=== PATIENT | male | born 1985 | race Caucasian/White ===

== ENCOUNTER 2020-07-28 21:02 | Emergency (ER) | payer BC, SELFPAY ==
[2020-07-28 21:08] VITALS: BP 152/85; BP 177/90; PULSE 131; PULSE 133; RESP 14; TEMP 37.3; O2SAT 100; O2SAT 99; BMI 29.5
--- NOTE | 2020-07-28 21:37 | ED.OVERDOSE ---
HPI - Overdose General Chief Complaint: Overdose Stated Complaint: OVERDOSE Time Seen by Provider: 07/28/20 21:33 Mode of arrival: EMS Limitations: no limitations History of Present Illness HPI Narrative: Patient comes emergency room after an overdose. Patient states it was intentional, states that he has been dealing with severe right-sided hip pain since April of 2020. Patient recently had an MRI, states that he was told that he has herniated discs. Patient states he has experimented with drugs in the past, however this time he used it as self-medication for hip pain. Patient's had Narcan at home, who gave him a dose. To the emergency room, patient is alert and oriented, calm and cooperative, admits to using 2 bags of heroin MD complaint: accidental overdose Related Data Allergies Allergy/AdvReac Type Severity Reaction Status Date / Time No Known Allergies Allergy Verified 07/28/20 21:11 [No Known Allergies*] Review of Systems Review of Systems: Constitutional : No Weight loss, No Fever, No Chills, No Night Sweats, No Fatigue, No Malaise ENT/Mouth : No Hearing loss, No Ear Pain, No Nasal Congestion, No Sinus Pain, No Hoarseness, No sore throat, No Rhinorrhea, No Swallowing Difficulty Eyes: No Eye Pain, No Swelling, No Redness, No Foreign Body, No Discharge, No Vision Changes Cardiovascular : No Chest Pain, No SOB, No Dyspnea on Exertion, No Orthopnea, No Edema, No Palpitations Respiratory : No Cough, No Sputum, No Wheezing, No Smoke Exposure, No Dyspnea Gastrointestinal : No Nausea, No Vomiting, No Diarrhea, No Constipation, No abdominal Pain, No Hematochezia, No Melena Genitourinary : no irregular bleeding, No Dysuria, No Urinary Frequency, No Hematuria, No Urinary Incontinence, No Urgency, No Flank Pain, No Urinary Flow Changes, No Hesitancy Musculoskeletal : Complaining of chronic right hip pain, No Myalgias, No Joint Swelling Skin : No Skin Lesions, No rash Neuro : No Weakness, No Numbness, No Paresthesias, No Loss of Consciousness, No Dizziness, No Headache Psych : No Anxiety/Panic, No Depression, No SI/HI/AH/VH, No Social Issues, Heme/Lymph: No Bruising, No Bleeding,No Lymphadenopathy Endocrine : No Polyuria, No Polydipsia, No Temperature Intolerance PMFSH Past Medical History Medical History Chronic back pain Opioid abuse Social History Social History Advance Directives: No Advance Directives Information Provided: Yes Physical Exam Vital Signs: Vital Signs: Last Vital Signs Temp 99.2 F 07/28/20 21:39 Pulse 121 H 07/28/20 21:39 Resp 18 07/28/20 21:39 BP 134/85 07/28/20 21:39 Pulse Ox 97 07/28/20 21:39 Body Mass Index 29.5 Appearance: Alert. Oriented X3. No acute distress. Eyes: Pupils equal, round and reactive to light. ENT: Pharynx normal. Neck: Normal inspection. Neck supple. No lymph nodes noted. No crepitus CVS: Normal heart rate and rhythm. Pulses normal. Normal S1 and S2 Respiratory: No respiratory distress. Breath sounds normal. No Wheezing. No rales Abdomen: Soft and nontender. No rigidity. No distention. good BS x4 Skin: Skin warm and dry. Normal skin color. Normal skin turgor. Extremities: No lower extremity edema. No lower extremity edema. No Lacerations. No Rash Neuro: Oriented X 3. No motor deficit. No sensory deficit. Moving all extermities. No slurred speech. Course Course Course Narrative: Patient remains awake, alert, oxygen saturation 99% on room air. Per patient, his is picking him up. Patient was provided with home Narcan Discharge Plan Discharge Clinical Impression: Drug overdose Qualifiers: Encounter type: initial encounter Injury intent: accidental or unintentional Qualified Code(s): T50.901A - Poisoning by unspecified drugs, medicaments and biological substances, accidental (unintentional), initial encounter Patient Disposition: Home, Self-Care Instructions: Adult Overdose (ED) Additional Instructions: Please follow-up with your primary care physician tomorrow. If you have any worsening or new symptoms, please return to the emergency room or call 911
[2020-07-28 21:39] VITALS: BP 134/85; PULSE 121; RESP 18; TEMP 37.3; O2SAT 97
--- NOTE | 2020-07-28 22:05 | PC.NURSE ---
PT AWAKE AND ALERT, SEATED UPRIGHT IN BED AND IN NO DISTRESS. PT ON PHONE SPEAKING TO FAMILY/FRIEND?
== END 2020-07-28 23:28 | disposition home or self-care (01) ==
PROVIDERS: Emergency Provider Emergency Medicine
DX: T40.1X2A Poisoning by heroin, intentional self-harm, initial encounter (principal); Y92.009 Unspecified place in unspecified non-institutional (private) residence as the place of occurrence of the external cause; M51.17 Intervertebral disc disorders with radiculopathy, lumbosacral region; F11.10 Opioid abuse, uncomplicated; Z71.51 Drug abuse counseling and surveillance of drug abuser
CPT/HCPCS: 99285

== ENCOUNTER 2022-08-09 18:51 | Emergency (ER) | payer BC, SELFPAY ==
--- NOTE | ~2022-08-09 | XR_ITS ---
EXAMINATION: XR CHEST CLINICAL INFORMATION: Chest pain COMPARISON: None available. TECHNIQUE: 2 views of the chest were obtained. FINDINGS: No significant abnormality is noted involving the heart, lungs, mediastinum, bony thorax or soft tissues. XR/XR chest 2V IMPRESSION: Unremarkable examination.
[2022-08-09 18:54] VITALS: BP 155/109; PULSE 86; RESP 18; TEMP 36.7; O2SAT 100; BMI 31.0
--- NOTE | 2022-08-09 18:56 | ECG_ITS ---
Test Reason : chest pain Blood Pressure : / mmHG Vent. Rate : 080 BPM Atrial Rate : 080 BPM P-R Int : 128 ms QRS Dur : 092 ms QT Int : 368 ms P-R-T Axes : 029 027 028 degrees QTc Int : 424 ms Normal sinus rhythm Normal ECG No previous ECGs available Referred By: Irma Marroquin Electronically Signed By:Denny Pearl
--- NOTE | 2022-08-09 18:57 | ED_ITS ---
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 No increase in discomfort with food or exertion no shortness of b reath and diaphoresis no palpitation or syncope episode <Alfonso Corona MD - Last Filed: 08/09/22 22:13> Related Data Allergies/Adverse Reactions: Allergies Allergy/AdvReac Type Severity Reaction Status Date / Time No Known Allergies Allergy Verified 07/28/20 21:11 [No Known Allergies*] <DANIEL Gonzalez - Last Filed: 08/09/22 18:58> Review of Systems Review of Systems: Yes all other systems are reviewed and are negative <Alfonso Corona MD - Last Filed: 08/09/22 22:13> [facility] Past Medical History Medical History: Medical History Chronic back pain Opioid abuse <DANIEL Gonzalez - Last Filed: 08/09/22 18:58> Social History Social History: Social History Advance Directives: No Advance Directives Information Provided: No <DANIEL Gonzalez - Last Filed: 08/09/22 18:58> Physical Exam Vital Signs: Vital Signs: Last Vital Signs Temp 98.1 F 08/09/22 18:54 Pulse 86 08/09/22 18:54 Resp 18 08/09/22 18:54 BP 155/109 H 08/09/22 18:54 Pulse Ox 100 08/09/22 18:54 O2 Del Method Room Air 08/09/22 18:54 BMI result Body Mass Index 31.0 <DANIEL Gonzalez - Last Filed: 08/09/22 18:58> Vital Signs: Last Vital Signs Temp 98.1 F 08/09/22 18:54 Pulse 86 08/09/22 18:54 Resp 18 08/09/22 18:54 BP 155/109 H 08/09/22 18:54 Pulse Ox 100 08/09/22 18:54 O2 Del Method Room Air 08/09/22 18:54 BMI result Body Mass Index 31.0 <Alfonso Corona MD - Last Filed: 08/09/22 22:13> Appearance: Alert. Oriented X3. No acute distress. Eyes: PERRLA, No Nystagmus ENT: Pharynx normal. Oral Mucosa moist Neck: Normal inspection. Neck supple. CVS: Normal heart rate and rhythm. Pulses normal. Respiratory: No respiratory distress. Equal air entry bilateral, no wheezing/r ales/rhonchi Abdomen: Soft and nontender. Bowel sounds are present, no mass palpable, no CVA tenderness Skin: Skin warm and dry. Normal skin color. Normal skin turgor. Extremities: No lower extremity edema. No calf tenderness Neuro: Oriented X 3. No motor deficit. No sensory deficit.No cerebellar signs , cranial nerves II-XII intact <Alfonso Corona MD - Last Filed: 08/09/22 22:13> Course Course Course Narrative: RME - 37 yo male, former smoker who presents to the ER for evaluation of chest tightness for the last couple of days, currently 2/10 but was up to a 6/10 earlier today when walking. Pain does not radiate, located right in the middle of the chest. No associated SOB, diaphoresis or nausea. On the way here he developed left arm feeling funny described as some numbness. Plan: EKG, CXR, labs <DANIEL Gonzalez - Last Filed: 04/03/23 18:58> Medical Decision Making Medical Decision Making [facility] Narrative: Patient atypical chest pain high sensitive troponin negative EKG normal heart score of 0 discharge patient home advised to follow with PCP <Alfonso Corona MD - Last Filed: 08/09/22 22:13> Differential Diagnosis ACS/costochondritis /esophagitis <Alfonso Corona MD - Last Filed: 08/09/22 22:13> Lab Data [facility] Lab Attestation statement: I reviewed the patient's lab results. <Alfonso Corona MD - Last Filed: 08/09/22 22:13> Result Diagrams: 08/09/22 19:08 08/09/22 19:08 <DANIEL Gonzalez - Last Filed: 08/09/22 18:58> Labs: Lab Results 08/09/22 08/09/22 08/09/22 Range/Units 19:08 19:08 19:08 WBC 9.9 (4.8-10.8) X10*3/uL RBC 4.72 (4.60-5.80) X10*6/uL Hgb 14.1 (14.0-18.0) g/dl Hct 41.6 L (42.0-52.0) % MCV 88.1 (80.0-98.0) fL MCH 29.9 (27.0-33.0) pg MCHC 33.9 (31.0-36.0) g/dl RDW 11.9 (11.0-16.0) % Plt Count 317 (160-400) X10*3/uL MPV 9.2 L (9.4-12.4) fL Immature Gran % (Auto) 0.2 (0.0-0.4) % Neut % (Auto) 64.4 (45-73) % Lymph % (Auto) 28.3 (20-40) % [place] % (Auto) 5.6 (2-11) % Eos % (Auto) 1.2 (0-4) % Baso % (Auto) 0.3 (0-2) % Lymph # (Auto) 2.8 (1.2-4.9) X10*3/uL [place] # (Auto) 0.6 (0.1-1.2) X10*3/uL Eos # (Auto) 0.1 (0.0-0.4) X10*3/uL Baso # (Auto) 0.0 (0.0-0.2) X10*3/uL Abs Immat Gran (auto) 0.02 (0.00-0.03) X10*3/uL Absolute Neuts (auto) 6.4 (2.0-8.3) x10*3/uL Absolute Nucleated RBC 0.000 (0.0-0.012) X10*3/uL Nucleated RBC % (auto) 0.0 (0.0-0.2) /100WBC Sodium 139 (135-145) mmol/L Potassium 3.8 (3.3-5.1) mmol/L Chloride 102 (96-108) mmol/L Carbon Dioxide 29 (22-29) mmol/L Anion Gap 12 (12-20) BUN 11 (9-16) mg/dL Creatinine 0.87 (0.5-1.4) mg/dL Estim Creat Clear Calc 133.6 Estimated GFR > 60 Random Glucose 96 (60-115) mg/dL Calcium 9.3 (8.4-10.2) mg/dL Magnesium 1.9 (1.6-2.6) mg/dL Total Bilirubin 0.7 (0.0-1.0) mg/dL Direct Bilirubin 0.2 (0.0-0.5) mg/dL AST 31 (5-37) U/L ALT 28 (0-40) U/L Alkaline Phosphatase 56 (39-117) U/L Troponin I High Sens < 3.5 (<3.5-35.0) ng/L Total Protein 7.0 (6.5-8.0) g/dL Albumin 4.5 (3.5-5.0) g/dL <DANIEL Gonzalez - Last Filed: 08/09/22 18:58> Lab Results 08/09/22 08/09/22 08/09/22 Range/Units 19:08 19:08 19:08 WBC 9.9 (4.8-10.8) X10*3/uL RBC 4.72 (4.60-5.80) X10*6/uL Hgb 14.1 (14.0-18.0) g/dl Hct 41.6 L (42.0-52.0) % MCV 88.1 (80.0-98.0) fL MCH 29.9 (27.0-33.0) pg MCHC 33.9 (31.0-36.0) g/dl RDW 11.9 (11.0-16.0) % Plt Count 317 (160-400) X10*3/uL MPV 9.2 L (9.4-12.4) fL Immature Gran % (Auto) 0.2 (0.0-0.4) % Neut % (Auto) 64.4 (45-73) % Lymph % (Auto) 28.3 (20-40) % [place] % (Auto) 5.6 (2-11) % Eos % (Auto) 1.2 (0-4) % Baso % (Auto) 0.3 (0-2) % Lymph # (Auto) 2.8 (1.2-4.9) X10*3/uL [place] # (Auto) 0.6 (0.1-1.2) X10*3/uL Eos # (Auto) 0.1 (0.0-0.4) X10*3/uL Baso # (Auto) 0.0 (0.0-0.2) X10*3/uL Abs Immat Gran (auto) 0.02 (0.00-0.03) X10*3/uL Absolute Neuts (auto) 6.4 (2.0-8.3) x10*3/uL Absolute Nucleated RBC 0.000 (0.0-0.012) X10*3/uL Nucleated RBC % (auto) 0.0 (0.0-0.2) /100WBC Sodium 139 (135-145) mmol/L Potassium 3.8 (3.3-5.1) mmol/L Chloride 102 (96-108) mmol/L Carbon Dioxide 29 (22-29) mmol/L Anion Gap 12 (12-20) BUN 11 (9-16) mg/dL Creatinine 0.87 (0.5-1.4) mg/dL Estim Creat Clear Calc 133.6 Estimated GFR > 60 Random Glucose 96 (60-115) mg/dL Calcium 9.3 (8.4-10.2) mg/dL Magnesium 1.9 (1.6-2.6) mg/dL Total Bilirubin 0.7 (0.0-1.0) mg/dL Direct Bilirubin 0.2 (0.0-0.5) mg/dL AST 31 (5-37) U/L ALT 28 (0-40) U/L Alkaline Phosphatase 56 (39-117) U/L Troponin I High Sens < 3.5 (<3.5-35.0) ng/L Total Protein 7.0 (6.5-8.0) g/dL Albumin 4.5 (3.5-5.0) g/dL <Alfonso Corona MD - Last Filed: 08/09/22 22:13> Independent Interpretation I performed an independent interpretation of an: EKG <Alfonso Corona MD - Last Filed: 08/09/22 22:13> Interpretation: Normal sinus rhythm heart rate 80 beats per minute normal intervals normal axis no acute ST-T changes no acute ischemia <Alfonso Corona MD - Last Filed: 08/09/22 22:13> Discharge Plan Discharge Clinical Impression: Chest pain <DANIEL Gonzalez - Last Filed: 08/09/22 18:58> Patient Disposition: Home, Self-Care <DANIEL Gonzalez - Last Filed: 08/09/22 18:58> Instructions: Chest Pain (ED) <DANIEL Gonzalez - Last Filed: 08/09/22 18:58> Additional Instructions: Follow-up with PCP for further evaluation , chest pain is unlikely cardiac at this time there is no evidence of any heart damage Report to ER if worsening of the chest or change in character of chest pain <DANIEL Gonzalez - Last Filed: 08/09/22 18:58>
[2022-08-09 19:14] LABS: MANUAL DIFF FLAG NO
[2022-08-09 19:16] LABS: Basophils Percent Auto 0.3 % (0-2); Eosinophils Absolute Auto 0.1 X10*3/uL (0.0-0.4); Eosinophils Percent Auto 1.2 % (0-4); Hematocrit 41.6 % (42.0-52.0); Hemoglobin 14.1 g/dl (14.0-18.0); Imm Gran Abs Auto 0.02 X10*3/uL (0.00-0.03); Imm Gran Pct Auto 0.2 % (0.0-0.4); Lymphocytes Absolute Auto 2.8 X10*3/uL (1.2-4.9); Lymphocytes Percent Auto 28.3 % (20-40); Mean Corpuscular HGB Conc 33.9 g/dl (31.0-36.0); Mean Corpuscular Hemoglobin 29.9 pg (27.0-33.0); Mean Corpuscular Volume 88.1 fL (80.0-98.0); Mean Platelet Volume 9.2 fL (9.4-12.4); Monocytes Absolute Auto 0.6 X10*3/uL (0.1-1.2); Monocytes Percent Auto 5.6 % (2-11); Neutrophils Absolute Auto 6.4 x10*3/uL (2.0-8.3); Neutrophils Percent Auto 64.4 % (45-73); Platelet Count 317 X10*3/uL (160-400); Red Blood Count 4.72 X10*6/uL (4.60-5.80); Red Cell Distribution Width 11.9 % (11.0-16.0); White Blood Count 9.9 X10*3/uL (4.8-10.8)
[2022-08-09 19:38] LABS: Alanine Aminotransferase 28 U/L (0-40); Albumin Level 4.5 g/dL (3.5-5.0); Alkaline Phosphatase 56 U/L (39-117); Anion Gap 12 (12-20); Aspartate Amino Transferase 31 U/L (5-37); Bilirubin Direct 0.2 mg/dL (0.0-0.5); Bilirubin Total 0.7 mg/dL (0.0-1.0); Blood Urea Nitrogen 11 mg/dL (9-16); Calcium 9.3 mg/dL (8.4-10.2); Carbon Dioxide 29 mmol/L (22-29); Chloride 102 mmol/L (96-108); Creatinine Clr Calc Pharmacy 133.6; Estimated Glomerular Filt Rate > 60; Glucose Random 96 mg/dL (60-115); Magnesium 1.9 mg/dL (1.6-2.6); Potassium 3.8 mmol/L (3.3-5.1); Sodium 139 mmol/L (135-145)
[2022-08-09 19:45] LABS: Troponin-I High Sensitivity < 3.5 ng/L (<3.5-35.0)
== END 2022-08-09 22:33 | disposition home or self-care (01) ==
PROVIDERS: Physician Assistant; Emergency Provider Internal Medicine
DX: R07.89 Other chest pain (principal); Z79.899 Other long term (current) drug therapy
CPT/HCPCS: 36415; 71046; 80048; 80076; 83735; 84484; 85025; 93005; 99283

== ENCOUNTER 2022-12-30 09:23 | Outpatient (AMB) | payer BC, SELFPAY ==
--- NOTE | 2022-12-30 10:27 | MHC.OFFWIV ---
Intake Vital Signs 12/30/22 10:37 Weight 101.605 kg BP 128/72 Blood Pressure Location Lt brachial Position Sitting Pulse 112 H Pulse Source Pulse Oximeter Temp 98.1 F Temp Source Temporal Artery Scan Pulse Oximetry (%) 96 Oxygen Delivery Method Room Air Intake Visit Reasons: EP, Bug Bite on upper back [phone] Intake Note: Pt is here c/o possible bug bite or rash on his upper back. Patient Tobacco Use Status: Never used Tobacco Allergies No Known Allergies [No Known Allergies*] Allergy (Verified 12/30/22 10:28) Do you need a note to return to daycare/school/sports/work: No HPI HPI Comments History of Present Illness Details 1104 37-year-old male history of opiate abuse presenting with rash to back time 6 days, tells me it is itchy and slightly painful, not improving despite [id number] topical creams. Denies fevers, chills, chest pain, shortness of breath, nausea, vomiting, headache, vision changes, dizziness physical exam significant for vesicles on an erythematous base in a dermatomal distribution overlying T3/T4 region. Overlying erythema and warmth. Concerns for shingles. Unlikely necrotizing infection, TCN, SJS. There is overlying erythema and warmth concerning for cellulitis. Plan Valtrex, overlying cellulitis is present will treat with doxycycline for MRSA coverage in case present. Educated patient on diagnosis and treatment plan, answered all question, patient verbalizes understanding. At this time patient will be discharged home, advised to return with new or worsening symptoms. Educated on worrisome signs and symptoms and when to return. At this time I feel comfortable discharge home. [facility] Medical History Chronic back pain Opioid abuse Social History Patient Tobacco Use Status: Never used Tobacco Review of Systems Const Details: Constitutional : No Fever, No Chills, Cardiovascular : No Chest Pain, No SOB Respiratory : No Dyspnea Gastrointestinal : No abdominal pain Musculoskeletal : No Joint Swelling Skin : + rash, No skin laceration Neuro : No Weakness, No Numbness Psych : No SI/HI All systems reviewed & are unremarkable except as noted in HPI and below Physical Exam Vital Signs: Last Vital Signs Temp 98.1 F 12/30/22 10:37 Pulse 112 H 12/30/22 10:37 BP 128/72 12/30/22 10:37 Pulse Ox 96 12/30/22 10:37 Oxygen Delivery Method Room Air 12/30/22 10:37 vss Appearance: Alert.? Oriented X3.? No acute distress.? Head: Normocephalic, atraumatic, no step-offs or deformities Eyes: Pupils equal, round and reactive to light.? CVS: Normal heart rate and rhythm.? Pulses normal.? Respiratory: No respiratory distress.? Breath sounds normal.? Abdomen: Soft and nontender.? Skin: Skin warm and dry.? Normal skin color.? Normal skin turgor.? Extremities: No lower extremity edema.? No calf ttp. 5/5 strength to bilateral upper and lower extremities Back: No midline tenderness, no C-spine tenderness, full range of motion, no CVA tenderness bilaterally + vesicles on an erythematous base in a dermatomal distribution overlying T3/T4 region (not crossing midline). Overlying erythema and warmth. Neuro: Oriented X 3.? No motor deficit.? No sensory deficit. CN 2-12 intact Assessment & Plan Assessment & Plan (1) Shingles: Code(s): B02.9 - Zoster without complications Plan Take your medications as prescribed. If you were prescribed antibiotics today, it is important that you take your medication to their entirety, do not skip any doses, do not finish them early. Follow-up with your primary care provider this week. Return to the emergency department with new or worsening symptoms. Such as fevers, chills, chest pain, shortness of breath, nausea, vomiting, dizziness, headache, vision changes, lethargy In case of emergency call 911 Medications: New valacyclovir (Valtrex) 1,000 mg PO TID 7 days 21 tabs 0RF prednisone 40 mg (2 x 20 mg) PO DAILY 5 days 10 tabs 0RF doxycycline hyclate 100 mg PO BID 7 days 14 caps 0RF Coding Level of Care Code Est Pt Level 3 (56175) Diagnoses Shingles B02.9
[2022-12-30 10:37] VITALS: BP 128/72; PULSE 112; TEMP 36.7; O2SAT 96
== END 2022-12-30 11:18 | disposition home or self-care (01) ==
PROVIDERS: Visit Provider Physician Assistant
DX: B02.9 Zoster without complications (principal)
CPT/HCPCS: 99213

== ENCOUNTER 2025-02-28 09:49 | Outpatient (AMB) | payer BC, SELFPAY ==
--- NOTE | 2025-02-28 10:01 | A.OFFPC_ITS ---
Vital Signs 02/28/25 10:08 Height 5 ft 8.7 in Weight 199 lb BMI 29.6 BP 145/90 H Blood Pressure Location Rt brachial Position Sitting Pulse 79 Pulse Source Pulse Oximeter Temp 97.8 F Temp Source Temporal Artery Scan Pulse Oximetry (%) 100 Oxygen Delivery Method Room Air Intake Visit Reasons: Establish Care Accompanied by: Self / Same As Patient Allergies No Known Allergies (No Known Allergies*) Allergy (Verified 02/28/25 10:29) Medication List - Last Reconciled 02/28/25 by Emely Nava PA-C cyclobenzaprine 5 - 10 mg PO BID PRN naproxen 500 mg PO DAILY PRN Tobacco use date assessed: 02/28/25 Dental Screening Dental Screen Date: 02/28/25 Did you have a dental visit in the last 12 months?: Yes Was dental information given to patient?: Patient has dentist HPI Establish Care HPI Details The patient is a 40-year-old male presenting for an annual physical examination and management of chronic muscle spasms. The patient reports a history of shingles, for which he was prescribed Valtrex and prednisone. He is not currently on any medication for shingles. The patient has been experiencing muscle spasms for nearly 15 years, which began after a tick bite. He has undergone extensive testing, including blood work and imaging, but no definitive diagnosis has been made. The spasms are migratory, affecting areas such as the jaw, knee, SI joint, spine, shoulder, and hip. He has received various treatments, including injections and child care sitter, with minimal relief. The patient has also tried muscle relaxants, which provide limited relief and sometimes cause anxiety. The patient has a history of bulging and herniated discs, which have improved over time. 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 He has a family history of spine issues and arthritis, and he has been diagnosed with arthritis himself. The patient has also experienced issues with hypertension, which was previously managed with medication but improved with weight loss and increased physical activity. The patient reports a thyroid disorder, with previous tests indicating slight abnormalities, though an ultrasound was normal. He has not been assessed for autoimmune disorders or rheumatoid arthritis. Social History - Employment: Works as a rural mail carrier, involving significant physical activity. - Family status: Has two children and co aches daughter's softball team. - Substance use: History of self-medicat ion with pain medication, currently sober. - Exercise: Walks 12-13 miles daily due to job. [facility] Medical History (Updated 02/28/25 @ 11:56 by Emely Nava PA-C) Encounter for preventive care Thyroid disorder Hypertension Muscle spasm Dystonia Annual physical exam Multiple joint pain Opioid abuse Chronic back pain Family History Mother Degenerative arthritis of spine Father HTN (hypertension) Social History Housing: House Patient Tobacco Use Status: Former Tobacco user service: No Current occupational status: employed Cognitive needs: No Hearing needs: No Vision needs: No Questionnaire PHQ-9 Over the last 2 weeks, how often have you been bothered by any of the following problems? 1. Little interest or pleasure in doing things: not at all 2. Feeling down, depressed, or hopeless: not at all 3. Trouble falling or staying asleep, or sleeping too much: several days 4. Feeling tired or having little energy: not at all 5. Poor appetite or overeating: not at all 6. Feeling bad about yourself - or that you are a failure or have let yourself or your family down: not at all 7. Trouble concentrating on things, such as reading the newspaper or watching television: not at all 8. Moving or speaking so slowly that other people could have noticed. Or the opposite - being so fidgety or restless that you have been moving around a lot more than usual: not at all 9. Thoughts that you would be better off or of hurting yourself in some way : not at all Total score: 1 Depression Screening Interpretation: Negative Depression Screening Done: Yes 91108 - PHQ-9 Billing: Yes Source: Developed by Drs. Luis Cota, Dulce Maria Hall, Joshua Garay and colleagues, with an educational jose from [employer]. Thrive Questionnaire Date Thrive assessed: 02/28/25 I am a: Patient What is your living situation today?: I have a steady place to live Within the past 12 months, did the food you bought not last and you didn't have the money to get more?: Never true Within the past 12 months, did you worry whether your food would run out before you got money to buy more?: Never true Do you have trouble paying for medicines?: No Do you have trouble getting transportation to medical appointments?: No Do you have trouble paying your heating and electricity bill?: No Do you have trouble taking care of your child, family member or friend?: No Do you have trouble with day-to-day activities such as bathing, preparing meals, shopping, managing finances, etc.?: No Are you currently unemployed and looking for a job?: No Are you interested in more education?: No Please select the resources that you would like help with: None THRIVE Score: 0 AUDIT C Alcohol Use Questionnaire (AUDIT-C) 1. How often do you have a drink containing alcohol?: Never Total Score: 0 Score Reviewed/Action Taken: No ANAHI-7 AMB Questionnaire ANAHI-7 Date ANAHI - 7 assessed: 02/28/25 Feeling nervous, anxious, or on edge: 1 = Several days Not being able to stop or control worryin = Several days Worrying too much about different things: 0 = Not at all Being so restless that it is hard to sit still: 0 = Not at all Becoming easily annoyed or irritable: 1 = Several days Feeling afraid as if something awful might happen: 0 = Not at all Source: Developed by Drs. Luis Cota, Dulce Maria Hall, Joshua Garay and colleagues, with an educational jose from [employer]. ANAHI-7 Assessment Billing ANAHI-7 Assessment Tool: ANAHI-7 Assessment 70205 Review of Systems Const Details: - Musculoskeletal: Reports chronic muscle spasms affecting various areas including jaw, knee, SI joint, spine, shoulder, and hip. - Endocrine: Reports previous thyroid disorder with slight abnormalities. - Cardiovascular: Denies chest pain, palpitations, or syncope. - Gastrointestinal: Denies black or bloody stools, unintentional weight loss. All systems reviewed & are unremarkable except as noted in HPI and below Physical exam (Primary Care) Vital Signs: Last Vital Signs Temp 97.8 F 02/28/25 10:08 Pulse 79 02/28/25 10:08 BP 145/90 H 02/28/25 10:08 Pulse Ox 100 02/28/25 10:08 Oxygen Delivery Method Room Air 02/28/25 10:08 Care Plan Goal for BP management: <140/90 will monitor BP and return in 1 month with diary BMI result Body Mass Index 29.6 BMI Assessment/Plan discussion: High BMI High, discussed plan: lifestyle, weight reduction, dietary, physical activity, alcohol moderation and other Tobacco/Smoking Status: Tobacco use Status Tobacco use date assessed 02/28/25 02/28/25 10:09 Patient Tobacco Use Status Former Tobacco user 02/28/25 10:09 Depression Screening Interpretation: Negative Const Other: Appearance: Alert. Oriented X3. No acute distress. Head: Normal external exam. Normocephalic. Atraumatic. Eyes: Pupils are equal, round, and reactive to light. Extraocular movements intact. Conjunctiva and sclera normal. Eyelids normal. Ears: External auditory canal normal. Tympanic membranes normal. Throat: Pharynx normal. Uvula midline. Moist mucous membranes. Neck: Normal inspection. Neck supple. Full range of motion. No adenopathy. Thyroid Normal. No meningeal signs. No neck mass noted. Cardiovascular: Normal heart rate and rhythm. Heart sound normal. No murmurs noted. Pulses normal throughout. Blood pressure was a tad bit high, at 140/90, indicating stage 1 hypertension. Respiratory: No respiratory distress. Painless inspiration. Breath sounds normal. No wheezes/rales/rhonchi noted. Chest nontender. No accessory muscle usage noted or decreased air movement noted. Abdomen: Soft and nontender. No distention noted. No organomegaly noted. Back: No costovertebral angle tenderness. Full range of motion noted. Skin: Skin warm and dry. Normal skin color. Normal skin turgor. No rashes/lesions/lacerations noted. Extremities: No lower extremity edema. Extremities exhibit normal range of motion. Noted muscle spasms, particularly in the right shoulder, hip, and midsection, with a history of bulging and herniated discs. Neuro: Oriented X 3. No motor deficit. No sensory deficit. Reflexes normal. Office Procedures Flu Questionnaire Does the patient have a severe egg allergy?: No Does the patient have severe life threatening allergies?: No Does the patient have a fever or illness today?: No Has the patient ever had Guillain-[place] Syndrome?: No Has the patient ever had any past reaction to a flu shot?: No Immunizations Fluarix 7710-3997 (PF) 45 mcg (15 mcg x 3)/0.5 mL IM syringe Performing Provider: Emely Nava PA-C [facility] Administered by: Jada Zepeda CMA on 02/28/25 10:15 Dose Route Admin Location Dispensed Lot Number Expiration Date NDC Necktie Maker 0.5 mL IM Left Deltoid 0.5 mL [id number] 11/05/25 [id number] [employer] VIS Given Date VIS Provided VIS Publication Date 02/28/25 Single Vaccine 24 Eligibility Eligibility Date Funding Source Not [facility] Eligible 02/28/25 Private Coding Level of Care Code New Pt Level 4 (51642) New Pt Prev Care 18-39yr(32797 Diagnoses Annual physical exam Z00.00 Muscle spasm M62.838 Multiple joint pain M25.50 Hypertension I10 Thyroid disorder E07.9 Encounter for preventive care Z00.00 Additional Codes PHQ-9 - 57230 - PHQ-9 Billing: Yes ([id number]) ANAHI-7 Assessment Billing - ANAHI-7 Assessment Tool: ANAHI-7 Assessment 08246 ([id number]) Time Spent (min) 60 Assessment & Plan Assessment & Plan (1) Annual physical exam: Code(s): Z00.00 - Encounter for general adult medical examination without abnormal findings Category: Medical (2) Muscle spasm: Code(s): M62.838 - Other muscle spasm Category: Medical Plan: The patient will be prescribed Valium to manage muscle spasms, with instructions to discontinue Flexeril due to its side effects. A referral to neurology and rheumatology will be made to further investigate the underlying cause of the spasms, considering the family history of dystonia. Comprehensive blood work will be conducted, including tests for rheumatoid factor and lupus, to rule out autoimmune conditions. (3) Multiple joint pain: Code(s): M25.50 - Pain in unspecified joint Category: Medical Plan: The patient will be prescribed Valium to manage muscle spasms, with instructions to discontinue Flexeril due to its side effects. A referral to neurology and rheumatology will be made to further investigate the underlying cause of the spasms, considering the family history of dystonia. Comprehensive blood work will be conducted, including tests for rheumatoid factor and lupus, to rule out autoimmune conditions. (4) Hypertension: Code(s): I10 - Essential (primary) hypertension Category: Medical Plan: The patient's blood pressure will be monitored at home for a month, with a follow-up appointment scheduled to reassess the need for antihypertensive medication. Lifestyle modifications, including reducing caffeine intake, are recommended to help manage blood pressure levels. (5) Thyroid disorder: Code(s): E07.9 - Disorder of thyroid, unspecified Category: Medical Plan: The patient reports a history of thyroid disorder with slight abnormalities, but current examination shows no palpable nodules. No immediate intervention is planned, but thyroid function will be monitored as part of routine blood work. (6) Encounter for preventive care: Code(s): Z00.00 - Encounter for general adult medical examination without abnormal findings Category: Medical Plan: The patient will undergo comprehensive blood work, including CBC, CMP, and PSA, as part of the annual physical examination. Screening for diabetes and vitamin deficiencies will also be conducted, with follow-up based on results. Plan Plan Patient was informed and verbally consented to the use of an ambient scribe for clinic note documentation during this visit. 1. Muscle Spasms The patient will be prescribed Valium to manage muscle spasms, with instructions to discontinue Flexeril due to its side effects. A referral to neurology and rheumatology will be made to further investigate the underlying cause of the spasms, considering the family history of dystonia. Comprehensive blood work w ill be conducted, including tests for rheumatoid factor and lupus, to rule out autoimmune conditions. 2. Hypertension The patient's blood pressure will be monitored at home for a month, with a follow-up appointment scheduled to reassess the need for antihypertensive medication. Lifestyle modifications, including reducing caffeine intake, are recommended to help manage blood pressure levels. 3. Thyroid Disorder The patient reports a history of thyroid disorder with slight abnormalities, but current examination shows no palpable nodules. No immediate intervention is planned, but thyroid function will be monitored as part of routine blood work. 4. Preventative Care The patient will undergo comprehensive blood work, including CBC, CMP, and PSA, as part of the annual physical examination. Screening for diabetes and vitamin deficiencies will also be conducted, with follow-up based on results. During the visit, we discussed the management of chronic muscle spasms, including the potential use of Valium as a muscle relaxant, while discontinuing Flexeril due to its side effects. I recommended referrals to neurology and rheumatology to explore underlying causes, considering the family history of dystonia. We also planned comprehensive blood work to rule out autoimmune conditions and monitor thyroid function. For hypertension, I advised home monitoring of blood pressure and lifestyle modifications, with a follow-up in a month to reassess treatment needs. Orders: Orders Rheumatoid Factor Today M25.50 - Pain in unspecified joint C Reactive Protein Today Z00.00 - Encounter for general adult medical examination without abnormal findings Complete Blood Count no Diff Today Z00.00 - Encounter for general adult medical examination without abnormal findings Comprehensive [place]. Panel Fast Today Z00.00 - Encounter for general adult medical examination without abnormal findings Magnesium Today Z00.00 - Encounter for general adult medical examination without abnormal findings Liver Panel Today Z00.00 - Encounter for general adult medical examination without abnormal findings Lipid Panel Today Z00.00 - Encounter for general adult medical examination without abnormal findings Vitamin B12 and Folate Today Z00.00 - Encounter for general adult medical ex amination without abnormal findings Vitamin D 25-OH Total Today Z00.00 - Encounter for general adult medical examination without abnormal findings Lyme IgG/IgM w/reflex to WB Today Z00.00 - Encounter for general adult medical examination without abnormal findings Anti DNA DS Antibody Today R76.89 - Other specified abnormal immunological findings in serum Complement C4 17 Days D80.1 - Nonfamilial hypogammaglobulinemia Sm Sm/ASSISTANT PRODUCTION MANAGER Antibodies Today R76.89 - Other specified abnormal immunological findings in serum Sjogren's Antibodies Today M25.50 - Pain in unspecified joint Influenza 0736-2442 Immunization Today Z23 - Encounter for immunization Erythrocyte Sedimentation Rate Today Z00.00 - Encounter for general adult medical examination without abnormal findings Hemoglobin A1c Today Z00.00 - Encounter for general adult medical examination without abnormal findings TSH reflex Free T4 Today Z00.00 - Encounter for general adult medical examination without abnormal findings UA CC w/rflx Micro + Cult Today Z00.00 - Encounter for general adult medical examination without abnormal findings PSA,Total (Free>4and<10) Today Z00.00 - Encounter for general adult medical examination without abnormal findings Complement C3 17 Days D80.1 - Nonfamilial hypogammaglobulinemia Immunoglobulins,IgG IgA IgM 17 Days D80.1 - Nonfamilial hypogammaglobulinemia Thyroglobulin Today M25.50 - Pain in unspecified joint Scleroderma 12 Panel Today M25.50 - Pain in unspecified joint Referrals Neurology Referral G24.9 - Dystonia, unspecified, M25.50 - Pain in unspecified joint Rheumatology Referral G24.9 - Dystonia, unspecified, M25.50 - Pain in unspecified joint Medications: New meloxicam 15 mg PO DAILY 90 tabs 3RF diazepam (Valium) 10 mg PO BEDTIME PRN 30 tabs 3RF sleep Patient Instructions: - Discontinue Flexeril and start Valium as prescribed for muscle spasms. - Monitor blood pressure at home daily and record readings. - Reduce caffeine intake to help manage blood pressure. - Complete blood work as ordered, including fasting for 10-12 hours before testing. - Follow up with neurology and rheumatology as referred. - Return for follow-up appointment in one month or sooner if blood pressure remains high.
[2025-02-28 10:08] VITALS: BP 145/90; PULSE 79; TEMP 36.6; O2SAT 100; BMI 29.6
--- OUTSIDE RECORDS SUMMARY | 2025-02-28 11:15 | XMS_ITS | Encounter Summary ---
Author Organization [facility] Address [facility] [place] [address] Care Team Providers Care Chef Passenger Vessel Name Role Phone Erik Pearson MD Primary Care Provider Huong Billingsley MD Primary Care Provider Tito mederos Reason for Visit * Reason Onset Date Comments TEST RESULTS 06/22/2020 Encounter Details Date Type Department Care Team Description 06/22/2020 Pt. Non Urgent Medical Question Medicine/Pediatrics [address] [id number] Erik Pearson MD Social History Tobacco Use Types Packs/Day Years Used Date Smoking Tobacco: Former Cigarettes 0.5 8 Smokeless Tobacco: Never Alcohol Use Standard Drinks/Week Comments Yes 0 (1 standard drink = 0.6 oz pur e alcohol) ocassionally Sex Assigned at Date Recorded Not on file Job Start Date Occupation Industry Not on file Not on file Not on file COVID-19 Exposure Response Date Recorded In the last month, have you been in contact with someone who was confirmed or suspected to have Coronavirus / COVID-19? No / Unsure 06/25/2020 1:45 PM EST documented as of this encounter Progress Notes * Karen Weinstein M.A. - 06/23/2020 10:18 AM EST Mychart sent to PT to advise results pending. documented in this encounter Miscellaneous Notes * Telephone Encounter - Jillian Carrillo M.A. - 06/23/2020 10:10 AM ESTFrom: Perfecto Paulson To: Erik Pearson MD Sent: 06/22/2020 1:02 PM EST Subject: MRI result Thank you Dr. Pearson for sending me the results of my MRI and the referral to a specialist. I am relieved to hear that we are possibly finding answers to the symptoms I have been experiencing. I received an Injection for my TMJ on 06/19/2020, and that seems to be helping with some of my jaw issues so far. Please let me kn ow about the hip MRI. Please let me know of any suggestions to get relief from this pain. Im not trying to be annoying, but it is difficult to deal with and severe at times. 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 I am trying to be patient while we figure this out (not my strong suit lol) but I really do ap preciate your help. Thank you againDr. Pearson. Sincerely, Tee Paulson documented in this encounter Plan of Treatment Not on file documented as of this encounter Visit Diagnoses Not on filedocumented in this encounter Care Teams Chef Passenger Vessel Relationship Specialty Start Date End Date Erik Pearson MD PCP - General Internal Medicine 04/10/20 10/13/21 Huong Navarrete MD PCP - General Family Practice 10/14/21 documented as of this encounter
--- OUTSIDE RECORDS SUMMARY | 2025-02-28 11:15 | XMS_ITS | Encounter Summary ---
Author Organization [facility] Address [address] [place] [id number] Care Team Providers Care Hand Trucker Name Role Phone Erik Pearson MD Primary Care Provider Unavail able Huong Navarrete MD Primary Care Provider Tito mederos Encounter Details Date Type Department Care Team Description 06/16/2020 Release of Information Medical Records [address] [place] [id number] Abstract, Provider Social History Tobacco Use Types Packs/Day Years [...] have Coronavirus / COVID-19? No / Unsure 06/12/2020 1:09 PM EST documented as of this encounter Nursing Notes * Chel Travis - 06/16/2020 12:30 PM EST AUTHORIZATION TO OBTAIN MEDICAL RECORDS MAILED TO [facility] documented in this encounter Plan of Treatment Not on file documented as of this encounter Visit Diagnoses Not on filedocumented in this encounter Care Teams Hand Trucker Relationship Specialty Start Date End Date Erik Pearson MD PCP - General Internal Medicine 04/10/20 10/13/21 Huong Navarrete MD PCP - General Family Practice 10/14/21 documented as of this encounter
--- OUTSIDE RECORDS SUMMARY | 2025-02-28 11:15 | XMS_ITS | Encounter Summary ---
Author Organization [facility] Address [address] [place] [address] Care Team Providers Care Lay Out Drafter Name Role Phone Erik Pearson MD Primary Care Provider Huong Billingsley MD Primary Care Provider Tito mederos Encounter Details Date Type Department Care Team Description 06/13/2020 Pt. Non Urgent Medical Question Medicine/Pediatrics - [address] [phone] Erik Pearson MD Social History Tobacco Use [...] as of this encounter Progress Notes * Yumiko Tellez M.A. - 06/16/2020 9:07 AM ESTFrom: Perfecto Paulson To: Erik Pearson MD Sent: 06/13/2020 10:24 PM EST Subject: Follow up Hi Dr. Pearson, I spoke with my Green Chain Off Bearer today, and explained that I had been experiencing hip and lower back pain. She seemed willing to work with me, and we decided that It would be best for me to put in for FMLA. She has requested the paperwork for me from our , and I will get that to you to fill out as so on as I receive it. I also completed my bloodwork yesterday, and scheduled my MRI for next Tuesday. Pl ease let me know if there is anything found in the bloodwork results. Thank you again for your help. Sincerely, Tee Paulson documented in this encounter Plan of Treatment Not on file documented as of this encounter Visit Diagnoses Not on filedocumented in this encounter Care Teams Lay Out Drafter Relationship Specialty Start Date End Date Erik Pearson MD PCP - General Internal Medicine 04/10/20 10/13/21 Huong Navarrete MD PCP - General Family Practice 10/14/21 documented as of this encounter
--- OUTSIDE RECORDS SUMMARY | 2025-02-28 11:15 | XMS_ITS | Clinical Summary ---
Author Organization [address] [facility] Building Address [address] [place] [phone] Phone Care Team Providers Care Chisel Mortiser Operator Name Role Phone Physician, No Pcp Primary Care Provider Unavaila ble Allergies No known active allergies Medications cyclobenzaprine (FLEXERIL) 10 mg tabletIndicatio ns:Left arm pain Take 0.5-1 tablets (5-10 mg total) by mouth 2 (two) times a day if needed for muscle spasms. 30 tablet 10/03/2024 Active Active Problems Problem Noted Date Diagnosed Date Essential hypertension 10/02/2024 Class 1 obesity 10/02/2024 VERONA (obstructive sleep apnea) 10/02/2024 Major depression 07/29/2020 Substance addiction ([facility] V24, [facility] V28) 0 07/29/2020 Overview (10/02/2024): Opiate prescription meds, on Suboxone since 2012, fully tapered off 2016. Chronic pain of right knee 06/05/2020 TMJ (temporomandibular joint disorder) Gastroesophageal reflux disease 10/03/2019 Heroin dependence ([facility] V24, [facility] V28) 09/2019 Immunizations Immunization Administration Dates Next Due DTP 07/04/1991, 8,1986,1986,1986 [id number] (Pentacel) 2mo to less than 5yo 01/05/1988 Hepatitis B Pediatric (Enger ix B; Recombivax HB) to less than 20 yo 08/16/1997,03/12/1997,01/29/1997 Hib (HbOC) 01/05/1988 Influenza Quadravalent, MDCK , 0.5ml, preservative free (Flucelvax) 6mo and older 02/08/2023 Influenza Quadrivalent, 0.5m l, preservative free (Fluarix; FluLaval; Fluzone) ages 6mo and older (Afluria) 3yo and older 03/10/2021 Influenza trivalent, 0.5mL, preservative free (Fluarix; FluLaval; Fluzone) ages 6mo and older (Afluria) 3 years and older 03/19/2019 Influenza trivalent, with preservative (Fluzone; Afluria) 6mo and older 05/10/2017,03/10/2015 MMR, measles mumps and rubel la Live (Priorix; M-M-R II) 12mo and older 01/29/1997,04/25/1987 OPV 07/04/1991, 8,1986,1985 Td Tetanus diptheria (Tdvax) 7yo and older 09/26/1997 Tdap Tetanus diptheria acell ular pertussis (Boostrix; Adacel) 7yo and older 08/06/2014 Surgical History Surgery Date Site/Laterality Comments UPPER GASTROINTESTINAL ENDOSCOPY 01/14/2015 PROCEDURE: UPPER GI ENDOSCOPY/EXAM; COMMENT: No report. COLONOSCOPY 01/14/2015 PROCEDURE: HISTORICAL COLONOSCOPY; COMMENT: No report OTHER SURGICAL HISTORY 1998 Right PROCEDURE: HISTORICAL ARM SURGERY; COMMENT: Closed reduction of dislocation, R wrist. Medical History Medical History Date Comments Fracture, radius DX:Fracture, ra dius; COMMENT: right HTN (hypertension) 07/29/2020 DX:HTN (hyper tension) Substance addiction (CMS/HCC V24, CMS/HCC V28) 07/29/2020 DX:Substance addiction ([facility]) ; COMMENT: Opiate prescription meds, on Suboxone since 2012, fully tapered off 2016. Major depression 07/29/2020 DX:Major depres jovita Chronic pain of right knee 06/05/2020 DX:Ch ronic pain of right knee Hip pain 06/05/2020 DX:Hip pain VERONA on CPAP 06/04/2020 DX:VERONA on CPAP Tick bite 07/29/2020 DX:Tick bite; CO MMENT: 2012 Jaw pain 06/05/2020 DX:Jaw pain; COM MENT: TMJ Obesity 06/05/2020 DX:Obesity Family History Medical History Relation Name Comments Other: Fibrous dysplasia Daughter Hypertension Father Other: HTN Father's side Hyperlipidemia Grandparent 1 Hyperlipidemia Grandparent 2 Breast cancer Maternal Grandmother later in life Colon polyps Mother Diabetes Mother's side Hypertension Paternal Grandfather Hypertension Paternal Grandmother Colon cancer Neg Hx Coronary artery disease Neg Hx Relation Name Status Comments Daughter Father Alive healthy Father's side Grandparent 1 Grandparent 2 Maternal Grandmother Mother Alive healthy Mother's side Paternal Grandfather Paternal Grandmother Sister Alive healthy Social History Tobacco Use Types Packs/Day Years Used Date Smoking Tobacco: Former Cigarettes Smokeless Tobacco: Never Tobacco Cessation:Counseling Given: Not Answered Alcohol Use Standard Drinks/Week Comments Yes 0 (1 standard drink = 0.6 oz pur e alcohol) Sex and Gender Information Value Date Recorded Sex Assigned at Not on file Legal Sex Male 3:18 PM EST Gender Identity Not on file Sexual Orientation Not on file Obstetrics History Last Filed Vital Signs Vital Sign Reading Time Taken Comments Blood Pressure 130/82 10/03/2024 9:46 AM EDT Pulse 75 10/03/2024 9:27 AM EDT Temperature 36.5 C (97.7 F) 03/29/2024 9:21 AM EST Respiratory Rate - - Oxygen Saturation 99% 03/29/2024 9:21 AM EST Inhaled Oxygen Concentration - - Weight 94.9 kg (209 lb 3.2 oz) 10/03/2024 9:27 A M EDT Height - - Body Mass Index - - Plan of Treatment Health Maintenance Due Date Last Done Comments Hepatitis A Vaccines (1 of 2 - Risk 2-dose series) 2005 HPV Vaccines (1 - 3-dose SCDM series) 2013 HIV Screening 04/17/2022 Hepatitis C Screening 04/17/2022 Social Influencers of Health Screening 04/17/2022 Depression Screening 05/09/2024 DTaP,Tdap,and Td Vaccines (8 - Td or Tdap) 08/06/2024 08/06/2014, 09/26/1997, 07/04/1991, Additional history exists COVID-19 Vaccine (3 - season) 2025 09/04/2020, 08/07/2020 Influenza Vaccine (#1) 2025 , 03/10/2021, 03/19/2019, Additional history exists Hypertension/CHF/CAD Annual BMP Blood Test 10/03/2025 10/03/2024 Cholesterol Screening (Lipid Panel) 07/05/2028 07/05/2023 RSV Immunization Adult Patients (1 - 1-dose 75+ series) 2061 HIB Vaccines Completed 01/05/1988, 01/05/1988 IPV Vaccines Completed 07/04/1991, 12/08, 07/07/1987, Additional history exists MMR Vaccines Completed 01/29/1997, 04/25/1987 Hepatitis B Vaccines Completed 08/16/1997, 03/12/1997, 01/29/1997 Meningococcal ACWY Vaccine Aged Out N o longer eligible based on patient's age to complete this topic Meningococcal B Vaccine Aged Out No l onger eligible based on patient's age to complete this topic Pneumococcal Vaccine: Pediatrics (0 to 5 Years) and At-Risk Patients (6 to 49 Years) Aged Out No longer eligible based on patient's age to complete this topic RSV Immunization Patients Under 20 months Aged Out No longer eligible based on patient's age to complete this topic Varicella Vaccines Aged Out No longer eligible based on patient's age to complete this topic Procedures Procedure Name Priority Date/Time Associated Diagnosis Comments BASIC METABOLIC PANEL Routine 10/03/2024 10:16 AM EDT Nonintractable headache, unspecified chronicity pattern, unspecified headache type LIPID PANEL Routine 07/05/2023 from Last 3 Months or Most Recently Relevant to Health Maintenance Results * Basic metabolic panel (10/03/2024 10:16 AM EDT) Sodium 138 133 - 145 mmol/L LAB CHEMISTRY METHOD 10/03/2024 5:23 PM EDT [facility] Potassium 4.2 3.5 - 5.5 mmol/L LAB CHEMISTRY METHOD 10/03/2024 5:23 PM [facility] Chloride 101 96 - 110 mmol/L LAB CHEMISTRY METHOD 10/03/2024 5:23 PM [facility] CO2 31 21 - 32 mmol/L LAB CHEMISTRY METHOD 10/03/2024 5:23 PM [facility] Anion Gap 6 3 - 11 LAB CHEMISTRY METHOD 10/03/2024 5:23 PM [facility] Glucose 99 70 - 100 mg/dL LAB CHEMISTRY METHOD 10/03/2024 5:23 PM [facility] BUN 13 5 - 25 mg/dL LAB CHEMISTRY METHOD 10/03/2024 5:23 PM [facility] Creatinine 0.88 0.70 - 1.30 mg/dL LAB CHEMISTRY METHOD 10/03/2024 5:23 PM [facility] eGFR 113 >=60 mL/min/1. 73m2 LAB CHEMISTRY METHOD 10/03/2024 5:23 PM [facility] Comment:Calculation based on the Chronic Kidney Disease Epidemiology Collaboration (CKD-EPI) equation refit without adjustment for race. BUN/Creatinine Ratio 14.8 LAB CHEMISTRY METHOD 10/03/2024 5:23 PM [facility] Calcium 9.4 8.5 - 10.5 mg/dL LAB CHEMISTRY METHOD 10/03/2024 5:23 PM [facility] Blood Venous blood specimen / Unknown Venipuncture / Unknown 10/03/2024 10:16 AM EDT 10/03/2024 10:16 AM EDT us Mariia Joseph NP LAB BLOOD ORDERABLES Final Resul t [facility] [address] [place] [address], * Lipid panel (07/05/2023) LDL/HDL Ratio 3 Triglycerides 67 mg/dL Cholesterol 163 mg/dL HDL 48 mg/dL LDL Cholesterol 102 mg/dL Blood Venous blood specimen / Unknown us Historical Provider LAB BLOOD ORDERABLES Gillian l Result from Last 3 Months or Most Recently Relevant to Health Maintenance Insurance [facility] Care Teams Chisel Mortiser Operator Relationship Specialty Start Date End Date Physician, No Pcp PCP - General 12/12/24
--- OUTSIDE RECORDS SUMMARY | 2025-02-28 11:15 | XMS_ITS | Encounter Summary ---
Author Organization [facility] Address [facility] [place] [address] Care Team Providers Care Water System Operator Name Role Phone Erik Pearson MD Primary Care Provider Unavail able Huong Navarrete MD Primary Care Provider Tito mederos Encounter Details Date Type Department Care Team Description 06/10/2020 Release of Information Medical Records [address] [place] [id number] Abstract, Provider Social History Tobacco Use Types [...] PM EST documented as of this encounter Plan of Treatment Not on file documented as of this encounter Visit Diagnoses Not on filedocumented in this encounter Care Teams Water System Operator Relationship Specialty Start Date End Date Erik Pearson MD PCP - General Internal Medicine 04/10/20 10/13/21 Huong Navarrete MD PCP - General Family Practice 10/14/21 documented as of this encounter
--- OUTSIDE RECORDS SUMMARY | 2025-02-28 11:15 | XMS_ITS | Encounter Summary ---
Author Organization [facility] Address [address] [facility] [place] [address] Care Team Providers Care Assistive Technology Specialist Name Role Phone Community, Pcp Primary Care Provider Erik Cha MD Primary Care Provider Unavail able Huong Navarrete MD Primary Care Provider Tito mederos Encounter Details Date Type Department Care Team Description 07/11/2014 Supervisor Type Bar And Segment Report Medical Records [address] [place] [id number] Dolores Saenz NP Social History Tobacco Use Types Packs/Day Years Used Date Smoking Tobacco: Every Day Cigarettes 0.5 Smokeless Tobacco: Never Alcohol Use Standard Drinks/Week Comments Yes 0 (1 standard drink = 0.6 oz pur e alcohol) ocassionally Sex Assigned at Date Recorded Not on file Job Start Date Occupation Industry Not on file Not on file Not on file documented as of this encounter Plan of Treatment Not on file documented as of this encounter Visit Diagnoses Not on filedocumented in this encounter Care Teams Assistive Technology Specialist Relationship Specialty Start Date End Date Community, Pcp PCP - General Internal Medicine 05/12/11 04/09/20 Erik Pearson MD PCP - General Internal Medicine 04/10/20 10/13/21 Huong Navarrete MD PCP - General Family Practice 10/14/21 documented as of this encounter
--- OUTSIDE RECORDS SUMMARY | 2025-02-28 11:15 | XMS_ITS | Encounter Summary ---
Author Organization [facility] Address [address] [place] [address] Care Team Providers Care Book Author Name Role Phone Erik Pearson MD Primary Care Provider Huong Billingsley MD Primary Care Provider Tito mederos Encounter Details Date Type Department Care Team Description 01/22/2021 Pt. Non Urgent Medical Question Medicine/Pediatrics - [address] [phone] Erik Pearson MD Social History Tobacco Use [...] have Coronavirus / COVID-19? No / Unsure 01/14/2021 6:32 PM EDT documented as of this encounter Miscellaneous Notes * Telephone Encounter - Yumiko Tellez M.A. - 01/22/2021 11:12 AM EDTFrom: Perfecto Lorene To: Adam Pearson Sent: 01/22/2021 9:32 AM EDT Subject: Continued pain Dr. Pearson, I made an appointment with [facility] to see a neurosurgeon. I have several appts next month with the sports massage therapist. She mentioned my psoas and IT were very tight. I am still experiencing alot of pain. In my lower back into my right hip/butto cks area. I am really struggling to find relief from this phi n. Everyday is a lehman dealing with this. Please help. I really need to find so me relief from this. documented in this encounter Plan of Treatment Not on file documented as of this encounter Visit Diagnoses Not on filedocumented in this encounter Care Teams Book Author Relationship Specialty Start Date End Date Erik Pearson MD PCP - General Internal Medicine 04/10/20 10/13/21 Huong Navarrete MD PCP - General Family Practice 10/14/21 documented as of this encounter
--- OUTSIDE RECORDS SUMMARY | 2025-02-28 11:16 | XMS_ITS | Encounter Summary ---
Author Organization [facility] Address [address] [place] [address] Care Team Providers Care Lot Porter Name Role Phone Huong Navarrete MD Primary Care Provider Tito mederos Reason for Visit * Reason Onset Date Comments DME Request 03/11/2022 Issues regarding RX Encounter Details Date Type Department Care Team Description 03/11/2022 Telephone Adult Medicine [facility] [address] [place] [address] Huong Navarrete MD DME Request (Issues regarding RX) Social History Tobacco Use Types Packs/Day Years Used Date Smoking Tobacco: Former Cigarettes 0.5 8 Smokeless Tobacco: Never Alcohol Use Standard Drinks/Week Comments Yes 0 (1 standard drink = 0.6 oz pur e alcohol) ocassionally Sex Assigned at Date Recorded Not on file Job Start Date Occupation Industry Not on file Not on file Not on file documented as of this encounter Miscellaneous Notes * Telephone Encounter - Kaila Marie - 03/11/2022 2:23 PM EDT Caller requesting call back from provider: Is the caller the patient? NO If caller is not the patient, what is the callers name? [facility] Callers relationship to patient? N/A If person calling is not the patient themselves, is there a verbal release in FYI or permanent comments for this person: NO Reason for call back: They need Face to face diagnosis sleep study and last office visit notes in order to qualify to get the CPAP machine. They always need a secondary diagnosis and Rx with equipment description and pressure setting. They will also be sending a fax over to be signed. Caller offered to speak with the nurse for assistance: YES Response: Patient offered to speak with nurse for assistance and patient agreed. Message forwarded to nurse. documented in this encounter Plan of Treatment Not on file documented as of this encounter Visit Diagnoses Not on filedocumented in this encounter Care Teams Lot Porter Relationship Specialty Start Date End Date Huong Navarrete MD PCP - General Family Practice 10/14/21 documented as of this encounter
--- OUTSIDE RECORDS SUMMARY | 2025-02-28 11:16 | XMS_ITS | Encounter Summary ---
Author Organization [facility] Address [address] [place] [address] Care Team Providers Care Painter Touch Up Name Role Phone Huong Navarrete MD Primary Care Provider Tito mederos Reason for Visit * Reason Onset Date Comments DME Request 03/15/2022 [facility] Encounter Details Date Type Department Care Team Description 03/15/2022 Telephone Adult Medicine [facility] [address] [place] [address] Huong Navarrete MD DME Request ([email or web address]) Social History Tobacco Use Types Packs/Day Years [...] encounter Miscellaneous Notes * Telephone Encounter - Joann Tadeo - 03/15/2022 3:07 PM EST durable medical equipment request from [employer] for a cpap machine. Please review,sign, andfax back documented in this encounter Plan of Treatment Not on file documented as of this encounter Visit Diagnoses Not on filedocumented in this encounter Care Teams Painter Touch Up Relationship Specialty Start Date End Date Huong Navarrete MD PCP - General Family Practice 10/14/21 documented as of this encounter
--- OUTSIDE RECORDS SUMMARY | 2025-02-28 11:16 | XMS_ITS | Encounter Summary ---
Author Organization [facility] Address [address] [place] [address] Care Team Providers Care Carpet Inspector Finished Name Role Phone Huong Navarrete MD Primary Care Provider Tito mederos Reason for Visit * Reason Onset Date Comments DME Request 07/13/2022 y[facility] Encounter Details Date Type Department Care Team Description 07/13/2022 Telephone Adult Medicine [address] [address] Huong Navarrete MD DME Request ([email or web address]) Social History Tobacco Use Types Packs/Day Years [...] Exposure Response Date Recorded In the last 10 days, have yo u been in contact with someone who was confirmed or suspected to have Coronavirus/COVID-19? No / Unsure 06/14/2022 1:47 PM EST documented as of this encounter Miscellaneous Notes * Telephone Encounter - Juju Ann M.A. - 07/15/2022 8:03 AM EST Faxed form back * Telephone Encounter - Joann Carlyle - 07/13/2022 2:31 PM EST durable medical equipment request from [employer] for sleep study supplies. Please review, sign, and faxback documented in this encounter Plan of Treatment Not on file documented as of this encounter Visit Diagnoses Not on filedocumented in this encounter Care Teams Carpet Inspector Finished Relationship Specialty Start Date End Date Huong Navarrete MD PCP - General Family Practice 10/14/21 documented as of this encounter
== END 2025-02-28 10:59 | disposition home or self-care (01) ==
PROVIDERS: PCP Physician Assistant Medical; Visit Provider Physician Assistant Medical
DX: Z00.00 Encounter for general adult medical examination without abnormal findings (principal); M62.838 Other muscle spasm; M25.50 Pain in unspecified joint; I10 Essential (primary) hypertension; E07.9 Disorder of thyroid, unspecified; Z23 Encounter for immunization

== ENCOUNTER → 2025-02-28 09:49 | Outpatient (BNVA) | payer BC, SELFPAY | PROVIDERS: PCP Physician Assistant Medical; Visit Provider Physician Assistant Medical | DX: Z00.00 Encounter for general adult medical examination without abnormal findings (principal); M62.838 Other muscle spasm; I10 Essential (primary) hypertension; M25.50 Pain in unspecified joint; D80.1 Nonfamilial hypogammaglobulinemia; R76.89 Other specified abnormal immunological findings in serum; Z23 Encounter for immunization | CPT/HCPCS: 90471; 90656; 96127 ==

== ENCOUNTER 2025-03-09 10:28 | Outpatient (REF) | payer BC, SELFPAY ==
[2025-03-09 13:33] LABS: Hematocrit 41.5 % (42.0-52.0); Hemoglobin 13.9 g/dl (14.0-18.0); Mean Corpuscular HGB Conc 33.5 g/dl (31.0-36.0); Mean Corpuscular Hemoglobin 30.0 pg (27.0-33.0); Mean Corpuscular Volume 89.6 fL (80.0-98.0); NRBC Abs Auto 0.000 X10*3/uL (0.0-0.012); NRBC Pct Auto 0.0 /100WBC (0.0-0.2); Platelet Count 342 X10*3/uL (160-400); Red Blood Count 4.63 X10*6/uL (4.60-5.80); White Blood Count 6.0 X10*3/uL (4.8-10.8)
[2025-03-09 13:43] LABS: Appearance Urine Clear; Glucose Urine UA Negative (Negative); PH 7.5 (5.0-9.0); Specific Gravity - Urine <= 1.005 (1.005-1.025)
[2025-03-09 13:58] LABS: Alanine Aminotransferase 29 U/L (0-40); Albumin Level 4.6 g/dL (3.5-5.0); Alkaline Phosphatase 59 U/L (39-117); Anion Gap 12 (12-20); Aspartate Amino Transferase 33 U/L (5-37); Blood Urea Nitrogen 12 mg/dL (9-16); Calcium 9.2 mg/dL (8.4-10.2); Carbon Dioxide 29 mmol/L (22-29); Chloride 104 mmol/L (96-108); Cholesterol 188 mg/dL (<200); Estimated Glomerular Filt Rate > 60; HDL Cholesterol 53 mg/dL (>40); Magnesium 2.2 mg/dL (1.6-2.6); Potassium 4.2 mmol/L (3.3-5.1); Sodium 141 mmol/L (135-145); Total Protein 7.1 g/dL (6.5-8.0); Triglycerides 168 mg/dL (<150)
[2025-03-09 14:15] LABS: PSA,Total (Free>4and<10) 0.72 ng/mL (0.00-4.00)
[2025-03-09 14:30] LABS: Folate 7.5 ng/mL (> or = 4.0); Vitamin B12 571 pg/mL (200-900)
[2025-03-11 22:09] LABS: Thyroglobulin 8.2 ng/mL
[2025-03-11 22:13] LABS: Lyme Abs Screen <0.90 index
[2025-03-12 22:04] LABS: Antibody to SS-A Antigen <1.0 NEG AI (<1.0 NEG); Antibody to SS-B Antigen <1.0 NEG AI (<1.0 NEG); SM/Ribonucleoprotein Ab <1.0 NEG AI (<1.0 NEG); Smith Protein <1.0 NEG AI (<1.0 NEG)
[2025-03-16 17:29] LABS: Centromere Protein A Ab <11 SI (<11); Centromere Protein B Ab <11 SI (<11); Fibrillarin Ab <11 SI (<11); PM SCL 100 Ab <11 SI (<11); PM SCL 75 Ab <11 SI (<11); RNA Polymerase III RP11 Ab <11 SI (<11); RNA Polymerase III RP155 Ab <11 SI (<11); SCL-70 Extractable Nuclear Ab <11 SI (<11); Th-To Ab <11 SI (<11); U1 SNRNP RNP 70KD <11 SI (<11); U1 SNRNP RNP A <11 SI (<11); U1 SNRNP RNP C <11 SI (<11)
== END 2025-03-09 10:29 | disposition home or self-care (01) ==
LOC: HO.HMGCLDS 10:28
PROVIDERS: PCP Physician Assistant Medical; Visit Provider Physician Assistant Medical
DX: Z00.00 Encounter for general adult medical examination without abnormal findings (principal); M25.50 Pain in unspecified joint; R76.89 Other specified abnormal immunological findings in serum; Z12.5 Encounter for screening for malignant neoplasm of prostate; Z01.84 Encounter for antibody response examination; Z13.6 Encounter for screening for cardiovascular disorders; Z13.1 Encounter for screening for diabetes mellitus; Z13.29 Encounter for screening for other suspected endocrine disorder
CPT/HCPCS: 36415; 80053; 80061; 80076; 81003; 82248; 82306; 82607; 82746; 83036; 83735; 84153; 84182; 84432; 84443; 85027; 85652; 86140; 86225; 86235; 86431; 86617; 86618

== ENCOUNTER 2025-04-19 15:25 | Outpatient (AMB) | payer BC, SELFPAY ==
[2025-04-19 15:34] VITALS: BP 130/72; PULSE 80; RESP 14; TEMP 36.6; O2SAT 99; BMI 30.8
--- NOTE | 2025-04-19 15:34 | A.OFFPC_ITS ---
Vital Signs 04/19/25 15:34 Height 5 ft 8.7 in Weight 207 lb BMI 30.8 BP 130/72 Blood Pressure Location Rt brachial Position Sitting Respiration 14 Pulse 80 Pulse Source Pulse Oximeter Temp 97.9 F Temp Source Temporal Artery Scan Pulse Oximetry (%) 99 Oxygen Delivery Method Room Air Intake Visit Reasons: BP follow up Infection Prevention Practitioner Required: No Accompanied by: Self / Same As Patient Allergies No Known Allergies (No Known Allergies*) Allergy (Verified 04/19/25 16:17) Medication List - Last Reconciled 04/19/25 by Emely Nava PA-C diazepam (Valium) 10 mg PO BEDTIME PRN meloxicam 15 mg PO DAILY Tobacco use date assessed: 02/28/25 Dental Screening Dental Screen Date: 02/28/25 HPI HPI Comments History of Present Illness Details History of Present Illness The patient is a 40 year old male presenting with follow-up on his blood pressure and muscle spasms. He reports that his blood pressure is well- controlled without medication. Regarding muscle spasms, the patient states the prescribed medication combination, including Valium, is helping, and his pain levels are decreasing. He still experiences spasms but notes there are longer intervals between them. For his multiple joint pain, a workup for lupus, including STACEY, was previously completed and all results were negative. He has a follow-up appointment scheduled with Dr. Neumann's neurology office in May and has a referral to neuromuscular medicine, which he needs to call to schedule. The patient has a history of high cholesterol his entire life, noting he was overweight as a child. His recent lab results, which he viewed on the portal, showed the best readings he has ever had, although triglycerides and LDL were borderline high. His last physical exam was on February 28. The patient has a history of a slight thyroid abnormality noted by a previous doctor, but a scan at that time was normal, and recent labs for this were also normal. [facility] Medical History (Updated 04/19/25 @ 16:21 by Emely Nava PA-C) Healthcare maintenance Pure hypercholesterolemia, unspecified Encounter for preventive care Thyroid disorder Hypertension Muscle spasm Dystonia Annual physical exam Multiple joint pain Opioid abuse Chronic back pain Family History Mother Degenerative arthritis of spine Father HTN (hypertension) Social History Housing: House Patient Tobacco Use Status: Former Tobacco user service: No Current occupational status: employed Cognitive needs: No Hearing needs: No Vision needs: No Questionnaire PHQ-9 Over the last 2 weeks, how often have you been bothered by any of the following problems? 1. Little interest or pleasure in doing things: not at all 2. Feeling down, depressed, or hopeless: not at all 3. Trouble falling or staying asleep, or sleeping too much: several days 4. Feeling tired or having little energy: not at all 5. Poor appetite or overeating: not at all 6. Feeling bad about yourself - or that you are a failure or have let yourself or your family down: not at all 7. Trouble concentrating on things, such as reading the newspaper or watching television: not at all 8. Moving or speaking so slowly that other people could have noticed. Or the opposite - being so fidgety or restless that you have been moving around a lot more than usual: not at all 9. Thoughts that you would be better off or of hurting yourself in some way: not at all Total score: 1 Depression Screening Interpretation: Negative Depression Screening Done: Yes 75203 - PHQ-9 Billing: Yes Source: Developed by Drs. Luis Cota, Dulce Maria Hall, Joshua Garay and colleagues, with an educational jose from [employer]. Thrive Questionnaire Date Thrive assessed: 02/28/25 I am a: Patient What is your living situation today?: I have a steady place to live Within the past 12 months, did the food you bought not last and you didn't have the money to get more?: Never true Within the past 12 months, did you worry whether your food would run out before you got money to buy more?: Never true Do you have trouble paying for medicines?: No Do you have trouble getting transportation to medical appointments?: No Do you have trouble paying your heating and electricity bill?: No Do you have trouble taking care of your child, family member or friend?: No Do you have trouble with day-to-day activities such as bathing, preparing meals, shopping, managing finances, etc.?: No Are you currently unemployed and looking for a job?: No Are you interested in more education?: No Please select the resources that you would like help with: None THRIVE Score: 0 AUDIT C Alcohol Use Questionnaire (AUDIT-C) 1. How often do you have a drink containing alcohol?: Never 3. How often do you have six or more drinks on one occasion?: Never Total Score: 0 Score Reviewed/Action Taken: No ANAHI-7 AMB Questionnaire ANAHI-7 Date ANAHI - 7 assessed: 02/28/25 Feeling nervous, anxious, or on edge: 1 = Several days Not being able to stop or control worryin = Several days Worrying too much about different things: 0 = Not at all Being so restless that it is hard to sit still: 0 = Not at all Becoming easily annoyed or irritable: 1 = Several days Feeling afraid as if something awful might happen: 0 = Not at all Source: Developed by Drs. Luis Cota, Dulce Maria Hall, Joshua Garay and colleagues, with an educational jose from [employer]. ANAHI-7 Assessment Billing ANAHI-7 Assessment Tool: ANAHI-7 Assessment 80639 Review of Systems Narrative Review of Systems - Musculoskeletal: Reports ongoing muscle spasms, although they are improving with medication, and reports decreased pain levels. - Constitutional: Reports a history of being overweight as a child. Const All systems reviewed & are unremarkable except as noted in HPI and below Physical exam (Primary Care) Vital Signs: Last Vital Signs Temp 97.9 F 04/19/25 15:34 Pulse 80 04/19/25 15:34 Resp 14 04/19/25 15:34 BP 130/72 04/19/25 15:34 Pulse Ox 99 04/19/25 15:34 Oxygen Delivery Method Room Air 04/19/25 15:34 Care Plan Goal for BP management: <140/90 at Goal BMI result Body Mass Index 30.8 BMI Assessment/Plan discussion: High BMI High, discussed plan: lifestyle, weight reduction, dietary, physical activity, alcohol moderation and other Tobacco/Smoking Status: Tobacco use Status Tobacco use date assessed 02/28/25 04/19/25 15:41 Patient Tobacco Use Status Former Tobacco user 04/19/25 15:41 PHQ-9: PHQ-9 Score PHQ-9: Total score 1 04/19/25 15:41 Depression Screening Interpretation: Negative Thrive Assessment: Date of Thrive Assessment Date Thrive assessed 02/28/25 04/19/25 15:41 Narrative Physical Exam Appearance: Alert. Oriented X3. No acute distress. Head: Normal external exam. Normocephalic. Atraumatic. Eyes: Pupils are equal, round, and reactive to light. Extraocular movements intact. Conjunctiva and sclera normal. Eyelids normal. Throat: Pharynx normal. Uvula midline. Moist mucous membranes. Neck: Normal inspection. Neck supple. Full range of motion. Cardiovascular: Normal heart rate and rhythm. Respiratory: No respiratory distress. Painless inspiration. Back: Full range of motion noted. Skin: Skin warm and dry. Normal skin color. Extremities: Extremities exhibit normal range of motion. Results Reviewed Results Reviewed: - Labs: - Lupus workup, including STCAEY, was negative. - Thyroid function tests were normal. - Lipid panel showed borderline elevated triglycerides at 168 mg/dL (target <150 mg/dL) and LDL at 102 mg/dL (target <100 mg/dL). Coding Level of Care Code Est Pt Level 4 (51548) Add On Problem Visit Only Diagnoses Muscle spasm M62.838 Hypertension I10 Pure hypercholesterolemia, unspecified E78.00 Healthcare maintenance Z00.00 Additional Codes ANAHI-7 Assessment Billing - ANAHI-7 Assessment Tool: ANAHI-7 Assessment 27880 ([id number]) PHQ-9 - 23839 - PHQ-9 Billing: Yes ([id number]) Assessment & Plan Assessment & Plan (1) Muscle spasm: Code(s): M62.838 - Other muscle spasm Category: Medical Plan: The patient reports that the current medication regimen, which includes Valium, is providing significant relief from his muscle spasms, with decreased pain levels and longer intervals between episodes. He has one refill remaining for diazepam and a 90-day supply of meloxicam. Continue current medications and he will request refills as needed. He has an appointment scheduled with neurology in May and was advised to call to schedule his neuromuscular medicine referral. (2) Hypertension: Code(s): I10 - Essential (primary) hypertension Category: Medical Plan: The patient's blood pressure was normal at this visit. No antihypertensive medication is required at this time. (3) Pure hypercholesterolemia, unspecified: Code(s): E78.00 - Pure hypercholesterolemia, unspecified Category: Medical Plan: His recent lab results showed borderline elevated triglycerides and LDL cholesterol, though these are the best readings he has ever had. The patient is motivated to avoid statin medication due to concerns about side effects. Information on naturally lowering cholesterol will be provided. He will continue to work on it, and medication will be considered at age 41 if levels remain e levated. (4) Healthcare maintenance: Code(s): Z00.00 - Encounter for general adult medical examination without abnormal findings Category: Medical Plan: The patient has opted for an annual follow-up. He was advised to schedule his next physical for February. He will call before his next annual exam to have orders placed for repeat blood work. He was informed about the availability of telehealth appointments if needed. Plan Plan Patient was informed and verbally consented to the use of an ambient scribe for clinic note documentation during this visit. 1. Muscle Spasms The patient reports that the current medication regimen, which includes Valium, is providing significant relief from his muscle spasms, with decreased pain levels and longer intervals between episodes. He has one refill remaining for diazepam and a 90-day supply of meloxicam. Continue current medications and he will request refills as needed. He has an appointment scheduled with neurology in May and was advised to call to schedule his neuromuscular medicine referral. 2. Hypertension The patient's blood pressure was normal at this visit. No antihypertensive medication is required at this time. 3. Hypercholesterolemia His recent lab results showed borderline elevated triglycerides and LDL cholesterol, though these are the best readings he has ever had. The patient is motivated to avoid statin medication due to concerns about side effects. Information on naturally lowering cholesterol will be provided. He will continue to work on it, and medication will be considered at age 41 if levels remain elevated. 4. Health Maintenance The patient has opted for an annual follow-up. He was advised to schedule his next physical for February. He will call before his next annual exam to have orders placed for repeat blood work. He was informed about the availability of telehealth appointments if needed. Discussion Notes I reviewed the patient's blood pressure, which is normal, and confirmed he does not require medication for it. We discussed his muscle spasms, and he reports the prescribed medication is helping significantly. I confirmed his prior workup for autoimmune conditions like lupus was negative. We discussed his cholesterol levels, noting they are borderline high but have improved. I explained that while we typically start medication at age 41 for such levels, I would prefer not to start him on a statin now given the borderline nature and his desire to avoid potential side effects like liver issues. I encouraged him to continue his efforts to manage it through lifestyle and provided him with informational materials. I informed the patient that his partner Damaris's breast biopsy results were benign. I recommended a follow-up diagnostic mammogram in six months, then a return to annual screening. We agreed on a yearly follow-up schedule for a physical, with the option for sooner appointments or telehealth calls if issues arise. I instructed him to call for lab orders before his next annual visit and to let us know when he needs medication refills. Patient Instructions: Patient Instructions - Your blood pressure is normal, and you do not need blood pressure medication at this time. - Continue taking your current medications for muscle spasms as they seem to be helping. - Please let us know when you need refills for your Valium or other medications. - Your cholesterol is slightly high. Continue working on diet and lifestyle changes to lower it. We will give you information to help with this. - You have an appointment with Dr. Neumann's neurology office in May. - You need to call the neuromuscular medicine office to schedule an appointment with them using the referral letter you received. - Plan to return for your next annual physical in about one year, around February. - Please call our office before your next annual visit so we can order your blood work in advance. - If any new problems come up before your next scheduled visit, please call us to make an appointment. - You can tell your partner, Damaris, that her breast biopsy was benign (not cancer).
--- OUTSIDE RECORDS SUMMARY | 2025-04-19 20:17 | XMS_ITS | Clinical Summary ---
Author Organization [place] [id number] [facility] Building Address [address] [place] [phone] Phone Care Team Providers Care Evidence Technician Name Role Phone Physician, No Pcp Primary [...] apnea) 10/02/2024 Major depression 07/29/2020 Substance addiction 07/29/2020 Overview (10/02/2024): Opiate prescription meds, on Suboxone since 2012, fully tapered off 2016. Chronic pain of right knee 06/05/2020 TMJ (temporomandibular joint disorder) Gastroesophageal reflux disease 10/03/2019 Heroin dependence 09/11/2019 Immunizations Immunization Administration Dates Next Due DTP 07/04/1991, 8,1986,1986,1986 [id number] (Pentacel) 2mo to less than 5yo 01/05/1988 [...] (CMS/HCC V24, CMS/HCC V28) 07/29/2020 DX:Substance addiction ([facility]) ; COMMENT: Opiate prescription meds, on [...] on file Sexual Orientation Not on file Last Filed Vital Signs Vital Sign Reading [...] 09/26/1997, 07/04/1991, Additional history exists COVID-19 Vaccine ( season) 2025 09/04/2020, 08/07/2020 Influenza Vaccine (#1) [...] LAB CHEMISTRY METHOD 10/03/2024 5:23 PM EDT [facility] Potassium 4.2 3.5 - 5.5 mmol/L LAB CHEMISTRY METHOD 10/03/2024 5:23 PM EDT [facility] Chloride 101 96 - 110 mmol/L LAB CHEMISTRY METHOD 10/03/2024 5:23 PM [facility] CO2 31 21 - 32 mmol/L LAB CHEMISTRY METHOD 10/03/2024 5:23 PM [facility] Anion Gap 6 3 - 11 LAB CHEMISTRY METHOD 10/03/2024 5:23 PM [facility] Glucose 99 70 - 100 mg/dL LAB CHEMISTRY METHOD 10/03/2024 5:23 PM [facility] BUN 13 5 - 25 mg/dL LAB CHEMISTRY METHOD 10/03/2024 5:23 PM [facility] Creatinine 0.88 0.70 - 1.30 mg/dL LAB CHEMISTRY METHOD 10/03/2024 5:23 PM [facility] eGFR 113 >=60 mL/min/1. 73m2 LAB CHEMISTRY METHOD 10/03/2024 5:23 PM T [facility] Comment:Calculation based on the Chronic Kidney Disease Epidemiology Collaboration (CKD-EPI) equation refit without adjustment for race. BUN/Creatinine Ratio 14.8 LAB CHEMISTRY METHOD 10/03/2024 5:23 PM [facility] Calcium 9.4 8.5 - 10.5 mg/dL LAB CHEMISTRY METHOD 10/03/2024 5:23 PM [facility] Blood Venous blood specimen / Unknown Venipuncture / Unknown 10/03/2024 10:16 AM EDT 10/03/2024 10:16 AM EDT us Mariia Joseph NP LAB BLOOD ORDERABLES Final Resul t [facility] [address] [place] [address], * Lipid panel (07/05/2023) LDL/HDL Ratio 3 Triglycerides 67 mg/dL Cholesterol 163 mg/dL HDL 48 mg/dL LDL Cholesterol 102 mg/dL Blood Venous blood specimen / Unknown us Historical Provider LAB BLOOD ORDERABLES Gillian l Result from Last 3 Months or Most Recently Relevant to Health Maintenance Insurance [facility] Care Teams Evidence Technician Relationship Specialty Start Date End Date Physician, No Pcp PCP - General 12/12/24
== END 2025-04-19 15:51 | disposition home or self-care (01) ==
LOC: HO.HMCSH 15:25
PROVIDERS: PCP Physician Assistant Medical; Visit Provider Physician Assistant Medical
DX: M62.838 Other muscle spasm (principal); I10 Essential (primary) hypertension; E78.00 Pure hypercholesterolemia, unspecified; Z00.00 Encounter for general adult medical examination without abnormal findings

== ENCOUNTER → 2025-04-19 15:25 | Outpatient (BNVA) | payer BC, SELFPAY | PROVIDERS: PCP Physician Assistant Medical; Visit Provider Physician Assistant Medical | DX: Z13.31 Encounter for screening for depression (principal); Z13.39 Encounter for screening examination for other mental health and behavioral disorders | CPT/HCPCS: 96127 ==